=== PATIENT | female | born 1985 | race Caucasian/White ===

== ENCOUNTER 2020-08-31 16:00 | Inpatient (IN) | payer MEDICARE, MEDICAID, SELFPAY ==
[2020-08-31] VITALS (7 sets, daily range): BP systolic 94–136; BP diastolic 54–83; PULSE 64–85; RESP 16–18; TEMP 36.5–36.6; O2SAT 91–98; BMI 39.5
[2020-08-31] MEDS: albuterol 8 gm MDI 1 PUFF INHALATION (18:13)
--- NOTE | 2020-08-31 18:42 | XRR_ITS ---
PROCEDURE INFORMATION: Exam: XR Chest Exam date and time: 08/31/2020 6:56 PM Age: 34 years old Clinical indication: Shortness of breath TECHNIQUE: Imaging protocol: XR of the chest Views: 1 view. COMPARISON: No relevant prior studies available. FINDINGS: Lungs: Low lung volumes due to suboptimal inspiration. This causes crowding of the lung markings. Mild atelectasis at the lung bases. No consolidative pulmonary infiltrate noted. Pleural spaces: Unremarkable. No pleural effusion. No pneumothorax. Heart/Mediastinum: No cardiomegaly. Bones/joints: Unremarkable. XR/XR chest 1V portable [id number] IMPRESSION: 1. Low lung volumes due to suboptimal inspiration. This causes crowding of the lung markings. 2. Mild atelectasis at the lung bases. No consolidative pulmonary infiltrate noted.
--- NOTE | 2020-08-31 18:46 | PM.CONSULT ---
Providers/Reason For Consult Consulting Physican/Specialty*: Psychiatry Reason for Consult*: Hypoxia Attending Physician: Siva Robles MD Primary Care Provider: SARA OLGUIN DO History of Present Illness History of Present Illness MAIRA LAZO is a 34 year old female with past medical history of COPD, bipolar disorder, ADHD, history of muscular dystrophy, who presents to [facility] neuropsychiatric unit for an exacerbation of her bipolar disorder, depression anxiety. Hospitalist team was consulted as patient uses CPAP at home, but she was noticed to be hypoxic while lying flat, O2 requirements of 82% requiring 3 L nasal cannula. 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 She tells me that this service is [facility], she was diagnosed with a respiratory tract infection, was given amoxicillin, which she has not used yet. She denies any shortness of breath, denies any chest pain, she did have some fevers, she tells me that she was tested 2 times for COVID-19 and she tested negative, she does not want to be tested anymore. She does have a productive cough. No chills. No lightheadedness, dizziness, no nausea, no vomiting. I reviewed her labs from [facility], she had no significant leukocytosis, creatinine within normal limits, bicarb is 32, rapid Covid was negative, no chest x-ray was performed,. Currently she is doing well, she does not have any complains of shortness of breath, no fever, no chills, has a cough, doing well with the CPAP. Review of Systems Const: Denies: fever(s), chills, fatigue or malaise Eyes: Denies: change in vision or blurry vision ENMT: Denies: nasal congestion Card: Denies: chest pain or palpitations Resp: Reports: non-productive cough; Denies: dyspnea, productive cough or wheezing GI: Denies: abdominal pain, nausea, vomiting, hematemesis, diarrhea, constipation, hematochezia or melena : Denies: flank pain, dysuria or urinary frequency Musc: Denies: neck pain or back pain Skin/Breast: Denies: rash Neuro: Denies: headache(s), dizziness or vertigo Endo: Denies: polyuria or polydipsia Meds/Allergies Home Medications and Allergies Home Medications Medication Instructions Recorded Confirmed Last Taken Type albuterol sulfate 2 inh INHALATION 6XD PRN 08/31/20 08/31/20 Unknown History amoxicillin-pot clavulanate 1 tab PO BID 08/31/20 08/31/20 Unknown History benzonatate 100 mg PO DAILY 08/31/20 08/31/20 Unknown History cariprazine [Vraylar] 3 mg PO DAILY 08/31/20 08/31/20 Unknown History epinephrine 0.3 ml IM ONCE PRN 08/31/20 08/31/20 Unknown History meloxicam 7.5 mg PO BID 08/31/20 08/31/20 Unknown History sumatriptan succinate 50 mg PO DIRECTED PRN 08/31/20 08/31/20 Unknown History topiramate 25 mg PO BID 08/31/20 08/31/20 Unknown History Allergies Allergy/AdvReac Type Severity Reaction Status Date / Time bupropion [From Wellbutrin] Allergy ALGY-Hives Verified 08/31/20 17:26 morphine Allergy ALGY-Hives Verified 08/31/20 17:26 silver Allergy ADR-Itching Verified 08/31/20 17:26 [From Tegaderm AG Mesh] Current Medications Current Medications Generic Name Dose Route Start Last Admin Trade Name Freq PRN Reason Stop Dose Admin Albuterol Sulfate 1 puff 08/31/20 17:26 08/31/20 18:13 Albuterol 8 Gm Mdi INHALATION 1 puff 6XD PRN Administration Migraine Headache PFSH Acute PFSH: Medical History (Updated 08/31/20 @ 18:54 by Kin Kelly MD) ADHD Anxiety and depression History of bipolar disorder History of migraine Surgical History (Updated 08/31/20 @ 18:53 by Kin Kelly MD) History of History of cholecystectomy History of tonsillectomy Family History (Updated 08/31/20 @ 18:53 by Kin Kelly MD) Mother Cervical cancer Hypertension Grandmother Breast cancer Social History (Updated 08/31/20 @ 18:53 by Kin Kelly MD) Smoking and tobacco status: former smoker Alcohol intake: never Substance/Drug Use: never Vitals/I&O/Wt Last Vital Signs Temp 97.8 F 08/31/20 16:36 Pulse 80 08/31/20 18:27 Resp 18 08/31/20 18:11 BP 112/54 08/31/20 16:36 Pulse Ox 96 08/31/20 18:27 Weight last 48 hrs Weight 111.13 kg Physical Exam Const: COMMON NORMALS: no acute distress and patient oriented x3 GENERAL APPEARANCE: cooperative and comfortable HENMT: COMMON NORMALS: normocephalic HEAD & SCALP: normocephalic Eye: COMMON NORMALS: Equal, round and reactive pupils present and EOMs intact bilaterally GENERAL EYE: appearance normal, both eyes and all related structures PUPIL: Yes Equal, round and reactive pupils present Neck/C-Spine: COMMON NORMALS: full ROM, no lymphadenopathy, no JVD and Thyroid normal THYROID: Thyroid normal Lymph: LYMPHATIC: no lymphadenopathy noted Resp: COMMON NORMALS: normal respiratory effort, No retractions and No use of accessory muscles AUSCULTATION: wheezes Cardio: COMMON NORMALS: no JVD, regular rate, regular rhythm, S1 normal heart sound present, S2 normal heart sound present, No gallops present (Cardio), No clicks present (Cardio) and No murmurs present (Cardio) RATE: regular rate RHYTHM: regular rhythm HEART SOUNDS: S1 normal heart sound present and S2 normal heart sound present GI: COMMON NORMALS: Normal to inspection, nondistended, normoactive bowel sounds present, Soft to palpation, non-tender and No hepatosplenomegaly present PALPATION: Yes Soft to palpation and Yes No hepatosplenomegaly present Extremity: COMMON NORMALS: normal to inspection, full ROM and no pedal edema Neuro: COMMON NORMALS: patient oriented x3, CN's II-XII intact bilaterally and moves all extremities A&P Assessment and plan (1) Hypoxia: -Likely secondary to COPD, she tells me that she has been on and off oxygen for the last year -Does have symptoms related to acute bronchitis, possible COPD exacerbation -No significant leukocytosis on outside labs, rapid Covid negative, no chest x-ray performed Plan: -Continue CPAP with oxygen therapy -Levaquin for antibiotic coverage -Solu-Medrol for COPD exacerbation -Ventolin, Advair -Repeat CBC CMP, pro-Aaron, chest x-ray tomorrow morning -Monitor respiratory status closely Status: Acute (2) Muscular dystrophy: Status: Acute (3) COPD (chronic obstructive pulmonary disease): Status: Acute Coding Level of Care Code Acute Boat Operator for [facility] Diagnoses Hypoxia R09.02 Muscular dystrophy G71.00 COPD (chronic obstructive pulmonary disease) J44.9
[2020-08-31] MEDS: levoFLOXacin 750 mg Tablet PO (18:55)
[2020-08-31] MEDS: trazodone 50 mg Tablet PO (20:14)
[2020-08-31] MEDS: hyDROXYzine 25 mg Capsule 50 MG PO (20:14)
[2020-09-01] MEDS: acetaminophen 325 mg Tablet 650 MG PO ×4 (01:58→23:10)
[2020-09-01 06:00] VITALS: BP 101/67; PULSE 74; RESP 18; TEMP 36.5; O2SAT 98
[2020-09-01 07:51] LABS: Basophils % 0.5 %; Eosinophils # 0.1 10^3/uL (0.0-0.8); Hematocrit 46.9 % (37.0-47.0); Hemoglobin 14.5 g/dL (11.5-15.3); Lymphocytes # 2.4 10^3/uL (0.8-4.8); Mean Corpuscular HGB Conc 30.9 g/dL (30.0-36.0); Mean Corpuscular Hemoglobin 29.2 pg (28.0-34.0); Mean Corpuscular Volume 94.6 fL (81-99); Mean Platelet Volume 12.7 fL (7.4-10.4); Monocytes # 0.4 10^3/uL (0.2-0.9); Monocytes % 6.3 %; Neutrophils # 3.17 10^3/uL (1.8-7.7); Nucleated Red Blood Cells % 0 %; Platelet Count 178 10^3/cmm (130-400); Red Blood Count 4.96 10^6/uL (4.1-5.3); Red Cell Distribution Width 13.2 % (12.1-15.1); White Blood Count 6.1 10^3/uL (4.0-10.0)
[2020-09-01] MEDS: predniSONE 10 mg Tablet 40 MG PO (08:36)
[2020-09-01] MEDS: topiramate 25 mg Tablet PO ×2 (08:36→17:15)
[2020-09-01] MEDS: meloxicam 7.5 mg tablet PO ×2 (08:36→17:15)
[2020-09-01] MEDS: benzonatate 100 mg Capsule PO (08:36)
[2020-09-01 08:40] LABS: NT Pro B Type Natriuretic Pept 41 pg/mL (0-125); Procalcitonin 0.02 ng/mL (0-0.5)
[2020-09-01] MEDS: albuterol 8 gm MDI 1 PUFF INHALATION ×2 (08:41→20:30)
[2020-09-01 08:46] VITALS: PULSE 70; RESP 18; O2SAT 91
[2020-09-01 08:51] LABS: Alanine Aminotransferase 13 U/L (0-33); Albumin Level 3.6 g/dL (3.5-5.2); Alkaline Phosphatase 69 IU/L (35-105); Aspartate Amino Transferase 15 U/L (0-32); Blood Urea Nitrogen 15 mg/dL (6-20); Carbon Dioxide 26 mmol/L (22-29); Globulin 2.3 g/dL (1.3-4.6); Glomerular Filtration Rate 181.6 mL/min (90-130); Glucose 105 mg/dL (65-115); Total Bilirubin 0.3 mg/dL (0.15-1.2); Total Protein 5.9 g/dL (6.6-8.7)
[2020-09-01 09:08] LABS: Anion Gap 14.2 (5-19); Chloride 103 mmol/L (98-107); Osmolality Calculated 289 mOsm/kg (285-295); Potassium 4.2 mmol/L (3.5-5.1); Sodium 139 mmol/L (136-145)
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
[2020-09-01] MEDS: PARoxetine 20 mg Tablet PO (13:19)
[2020-09-01 14:00] VITALS: BP 109/76; PULSE 89; RESP 18; TEMP 36.4
[2020-09-01] MEDS: nicotine 21 mg Patch 1 PATCH TRANSDERMA (14:16)
[2020-09-01] MEDS: SUMAtriptan 25 mg Tablet 50 MG PO (16:55)
[2020-09-01] MEDS: levoFLOXacin 750 mg Tablet PO (17:15)
[2020-09-01] MEDS: trazodone 50 mg Tablet PO (20:09)
[2020-09-01] MEDS: hyDROXYzine 25 mg Capsule 50 MG PO (20:09)
[2020-09-01 20:32] VITALS: PULSE 73; RESP 18; O2SAT 93
[2020-09-01 20:33] VITALS: PULSE 73; RESP 18; O2SAT 93
[2020-09-01 22:00] VITALS: BP 132/90; PULSE 96; RESP 18; TEMP 36.5; O2SAT 90
[2020-09-02] MEDS: haloperidol 5 mg Tablet PO (01:23)
[2020-09-02 06:00] VITALS: BP 108/70; PULSE 51; RESP 18; TEMP 36.4; O2SAT 90
[2020-09-02] MEDS: benzonatate 100 mg Capsule PO (07:57)
[2020-09-02] MEDS: PARoxetine 20 mg Tablet PO (07:58)
[2020-09-02] MEDS: topiramate 25 mg Tablet PO ×2 (07:58→17:39)
[2020-09-02] MEDS: meloxicam 7.5 mg tablet PO ×2 (07:58→17:39)
[2020-09-02] MEDS: predniSONE 10 mg Tablet 40 MG PO (07:58)
[2020-09-02 09:21] VITALS: PULSE 70; RESP 16; O2SAT 95
--- NOTE | 2020-09-02 13:13 | P.PN_ITS ---
Subjective Subjective: Interval history: This morning patient was doing well, she is tolerating CPAP, no fevers, no shortness of breath, no lightheadedness, no dizziness, no chest pain, no diarrhea Vitals/I&O/Wt Last Vital Signs Temp 97.6 F 09/02/20 06:00 Pulse 70 09/02/20 09:21 Resp 16 09/02/20 09:21 BP 108/70 09/02/20 06:00 Pulse Ox 95 09/02/20 09:21 Weight last 48 hrs Weight 111.13 kg Weight 111.13 kg Physical Exam Const: COMMON NORMALS: no acute distress and patient oriented x3 HENMT: COMMON NORMALS: normocephalic HEAD & SCALP: normocephalic Neck/C-Spine: COMMON NORMALS: no JVD Resp: COMMON NORMALS: normal respiratory effort, No retractions, No use of accessory muscles and clear to auscultation bilaterally AUSCULTATION: clear to auscultation bilaterally Cardio: COMMON NORMALS: no JVD, regular rate, regular rhythm, S1 normal heart sound present and S2 normal heart sound present RATE: regular rate RHYTHM: regular rhythm HEART SOUNDS: S1 normal heart sound present and S2 normal heart sound present GI: COMMON NORMALS: Normal to inspection, nondistended, normoactive bowel sounds present, Soft to palpation, non-tender, No hepatosplenomegaly present, no masses and no bruits PALPATION: Yes Soft to palpation and Yes No hepatosplenomegaly present Extremity: COMMON NORMALS: capillary refill normal, no clubbing, cyanosis or edema, no calf tenderness and no pedal edema Neuro: COMMON NORMALS: patient oriented x3 Data : 08/31/20 06:56 08/31/20 06:56 A&P Assessment and plan (1) Hypoxia: -Likely secondary to COPD, she tells me that she has been on and off oxygen for the last year -Does have symptoms related to acute bronchitis, possible COPD exacerbation -No significant leukocytosis on outside labs, rapid Covid negative -Chest x-ray unremarkable focal pneumonia, no significant leukocytosis or pro- Aaron elevation Plan: -Continue CPAP with oxygen therapy -Levaquin for antibiotic coverage, can stop in 5 days -Prednisone proceed COPD exacerbation, can stop in 5 days -Ventolin, Advair, will need to be chronically on inhalers -Likely will require oxygen therapy during the night, 3 L -I will sign off at this point, however we will peripherally follow, if any questions please call thank you Status: Acute (2) Muscular dystrophy: Status: Acute (3) COPD (chronic obstructive pulmonary disease): Status: Acute Attestations Medical Necessity Statement*: Patient requires hospitalization for hypoxia, COPD, inpatient psychiatric admission Coding Level of Care Code Acute Manager Policy for [facility] Diagnoses Hypoxia R09.02 Muscular dystrophy G71.00 COPD (chronic obstructive pulmonary disease) J44.9
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
[2020-09-02 14:04] VITALS: PULSE 70; RESP 16; O2SAT 95
[2020-09-02] MEDS: levoFLOXacin 750 mg Tablet PO (17:39)
[2020-09-02 19:41] VITALS: PULSE 60; RESP 18; O2SAT 93
== END 2020-09-02 20:39 | disposition home or self-care (01) | DRG 885 ==
PROVIDERS: Family Medicine; Admitting Provider Psychiatry & Neurology Psychiatry; PCP Family Medicine; Visit Provider Psychiatry & Neurology Psychiatry
DX: F31.9 Bipolar disorder, unspecified (principal); R45.851 Suicidal ideations; J43.9 Emphysema, unspecified; F90.9 Attention-deficit hyperactivity disorder, unspecified type; G71.00 Muscular dystrophy, unspecified; F41.9 Anxiety disorder, unspecified; F17.210 Nicotine dependence, cigarettes, uncomplicated; Z99.81 Dependence on supplemental oxygen; Z81.8 Family history of other mental and behavioral disorders; F43.10 Post-traumatic stress disorder, unspecified; E66.9 Obesity, unspecified; Z68.39 Body mass index [BMI] 39.0-39.9, adult; Z79.51 Long term (current) use of inhaled steroids
CPT/HCPCS: 36415; 71045; 80053; 83880; 84145; 85025; 94640; 94660; J3535; J7512